=== PATIENT | male | born 1960 | race Caucasian/White ===

== ENCOUNTER 2016-10-10 15:43 | Emergency (ER) | payer MEDICAID ==
[~2016-10-10] VITALS: Ht 188 cm; Wt 79.4 kg
[2016-10-10 16:52] LABS: Basophils # (auto) 0.1 uL; Basophils % (auto) 0.9 % (0.0-2.0); Eosinophils # (auto) 0.1 uL; Eosinophils % (auto) 0.8 % (0.0-7.0); Hematocrit 51.3 % (41.0-53.0); Hemoglobin 16.9 g/dL (13.5-17.5); Lymphocytes # (auto) 2.4 uL; Lymphocytes % (auto) 25.5 % (10.0-50.0); Mean Corpuscular Hemoglobin 31.6 pg (28.0-32.0); Mean Corpuscular Hgb Conc. 32.9 g/dL (32.0-36.0); Mean Platelet Volume 9.3 fL (7.4-10.4); Monocytes # (auto) 0.6 uL; Monocytes % (auto) 5.9 % (0.0-12.0); Neutrophils # (auto) 6.4 uL; Neutrophils % (auto) 66.9 % (37.0-80.0); Platelet Count (auto) 309 10^3/uL (140-450); Red Cell Distribution Width 14.3 % (11.6-16.0); White Blood Cell 9.6 10^3/uL (4.4-10.8)
[2016-10-10 17:03] LABS: INR 1.06 (0.9-1.15); Partial Thromboplastin Time 36.6 sec (22.64-33.71); Prothrombin Time 10.9 sec (9.37-12.3)
[2016-10-10 17:09] LABS: Albumin 3.7 g/dL (3.4-5.0); BUN/Creatinine Ratio 6.7; Calcium 9.3 mg/dL (8.5-10.1); Magnesium 2.4 mg/dL (1.6-2.6); Potassium 3.5 mmol/L (3.5-5.1)
[2016-10-10 17:13] LABS: Bilirubin, Total 0.8 mg/dL (0.2-1.0); Total Protein 8.9 g/dL (6.4-8.2)
[2016-10-10 19:30] LABS: Urine Bilirubin Negative (Negative); Urine Blood Negative /uL (Negative); Urine Color Yellow (Yellow); Urine Glucose Normal (Normal); Urine Ketone Negative (Negative); Urine Nitrite Negative (Negative); Urine RBC <1 /hpf (0 - 3); Urine Urobilinogen Normal (Negative); Urine pH 5.5 (5.0-8.0)
[2016-10-10] MEDS ORDERED: ONDANSETRON HCL 4 MG/2 ML VIAL IV ONE (19:30)
[2016-10-10] MEDS ORDERED: NALBUPHINE HCL 10 MG/1ml INJECTION IV ONE (19:30)
[2016-10-10] MEDS ORDERED: ASPirin 325 MG TAB PO ONE (19:30)
[2016-10-10 20:35] VITALS: BP 144/92
== END 2016-10-10 21:50 | disposition home or self-care (01) ==
LOC: ER 15:50
DX: C34.90 Malignant neoplasm of unspecified part of unspecified bronchus or lung (principal); R07.89 Other chest pain; F17.210 Nicotine dependence, cigarettes, uncomplicated; F12.10 Cannabis abuse, uncomplicated; Z88.6 Allergy status to analgesic agent; Z90.49 Acquired absence of other specified parts of digestive tract; Z90.89 Acquired absence of other organs
CPT/HCPCS: 36415; 71020; 71250; 80053; 81001; 83735; 84484; 85025; 85049; 85610; 85730; 93005; 96374; 96375; 99285; G0434; J2300; J2405; J7030

== ENCOUNTER 2016-10-12 10:39 | Emergency (ER) | payer MEDICAID ==
[~2016-10-12] VITALS: Ht 188 cm; Wt 79.4 kg
[2016-10-12 12:00] VITALS: BP 135/94
== END 2016-10-12 14:30 | disposition home or self-care (01) ==
LOC: ER 10:39
DX: R07.89 Other chest pain (principal); C34.90 Malignant neoplasm of unspecified part of unspecified bronchus or lung; Z88.6 Allergy status to analgesic agent; F17.210 Nicotine dependence, cigarettes, uncomplicated; F12.10 Cannabis abuse, uncomplicated